=== PATIENT | female | born 1980 | race Caucasian/White ===

== ENCOUNTER 2016-08-12 11:03 | Day surgery (SDC) | payer OTHER ==
--- NOTE | 2016-08-11 20:50 | PREOPHP ---
DATE OF ADMISSION: 08/12/2016 The patient is to be admitted tomorrow, 08/12/2016, for laparoscopic bilateral tubal ligation. HISTORY OF PRESENT ILLNESS: This is a 36-year-old female, 3, para 3, who has requested ster ilization on the basis of multiparity. The alternatives, benefits, risks and possible complications of this procedure as well as 1% failure rate was discussed with the patient at great length at the office. She was allowed to ask questions and all the questions were answered to her satisfaction, a nd she signed the appropriate surgical informed consent. PAST MEDICAL HISTORY: The patient had 3 normal pregnancies normal vaginal deliveries. She denies a ny medical problems including cardiovascular disease, hypertension, renal disease, liver disease, th yroid disease, or neurological problems. ALLERGIES: SHE HAS NO KNOWN ALLERGIES. FAMILY HISTORY: Noncontributory. REVIEW OF SYSTEMS: A 12-point review of systems is noncontributory. PHYSICAL EXAMINATION: GENERAL: Well-developed, obese, in no distress. Height 5 feet 4 inches and weight 186 pounds. VITAL SIGNS: Showed temperature to be 97.2, blood pressure 134/69, respirations 16 per minute, the pulse is 60 per minute, regular. HEENT: Within normal limits. Pupils are PERRLA. NECK: Supple. The thyroid is nonpalpable. LYMPHATIC: There is no lymphadenopathy. BREASTS: No masses or lumps. LUNGS: Clear to percussion and auscultation. HEART: Normal sinus rhythm without a murmur. ABDOMEN: Soft, obese. There are no organomegalies. PELVIC: Normal external genitalia. Vagina is normal. Cervix is normal. Bimanual exam: Uterus sm all, in the midline. There are no adnexal masses. LOWER EXTREMITIES: Within normal limits. NEUROLOGIC: Also normal. IMPRESSION: 1. Multiparity. 2. Obesity. PLAN: The patient is to be admitted tomorrow for laparoscopic tubal ligation under general anesthes ia. Dictated By: SUHA ANDERSON/KEN Conf#: [id number] DID#: [id number]
[2016-08-12] VITALS (10 sets, daily range): BP systolic 105–167; BP diastolic 60–73; PULSE 63–77; RESP 13–30; Ht 154.9 cm; Wt 85.1 kg
[~2016-08-12] VITALS: Ht 154.9 cm; Wt 85.1 kg
[~2016-08-12 11:03] MED LIST: GLYCOPYRROLATE 1 MG INJ ONE; NEOSTIGMINE 3 MG/3 ML SYRINGE ONE; ROCURONIUM 50 MG INJ ONE
[2016-08-12] MEDS ORDERED: SUCCINYLCHOLINE CHLORIDE 100 MG/5 ML SYG IV ONE (13:44)
[2016-08-12] MEDS ORDERED: PROPOFOL 20 ML ONE (13:44)
[2016-08-12] MEDS ORDERED: LIDOCAINE 2% (SDV) 5 ML INJ ONE (13:44)
[2016-08-12] MEDS ORDERED: FENTAnyl 50 MCG/ML VIAL ONE (13:45)
[2016-08-12] MEDS ORDERED: MIDAZOLAM 1 MG/ML 2 ML INJ ONE (13:45)
[2016-08-12] MEDS ORDERED: BUPIVACAINE 0.5%/EPI (SDV) 30 ML INJ ONE (13:54)
[2016-08-12] MEDS ORDERED: CEFAZOLIN 1 GM INJ ONE (14:34)
[2016-08-12] MEDS ORDERED: ONDANSETRON 4 MG INJ ONE (14:34)
[2016-08-12] MEDS ORDERED: LACTATED RINGER'S 1,000 ML IV SCH (14:49)
[2016-08-12] MEDS ORDERED: ONDANSETRON 4 MG INJ IV PRN ×2 (15:00→15:30)
[2016-08-12] MEDS ORDERED: ACETAMINOPHEN 325 MG TAB PO PRN (15:00)
[2016-08-12] MEDS ORDERED: morphine 2 MG INJ IV PRN (15:00)
[2016-08-12] MEDS ORDERED: IBUPROFEN 600 MG TAB PO PRN (15:00)
[2016-08-12] MEDS ORDERED: OXYCODONE/ACETAMINOPHEN (5/325) TAB PO PRN ×2 (15:00→15:30)
[2016-08-12] MEDS ORDERED: HYDROmorphONE (0.2 MG/ML) 10ML SYG IV ONE (15:13)
[2016-08-12] MEDS ORDERED: HYDROmorphONE (0.2 MG/ML) 10ML SYG IV PRN ×2 (15:30)
[2016-08-12] MEDS ORDERED: METOCLOPRAMIDE 10 MG INJ IV PRN (15:30)
[2016-08-12] MEDS: HYDROmorphONE (0.2 MG/ML) 10ML SYG IV PRN ×2 (15:56→16:02)
--- NOTE | 2016-08-12 17:13 | OPR ---
DATE OF OPERATION: 08/12/2016 PREOPERATIVE DIAGNOSES: 1. Multiparity. 2. Obesity. POSTOPERATIVE DIAGNOSIS: 1. Multiparity. 2. Obesity. PROCEDURE PERFORMED: Laparoscopic bilateral tubal ligation. SURGEON: Suha Mann MD. ANESTHESIA: General. ANESTHESIOLOGIST: COMPLICATIONS: None. SPECIMENS: None. ESTIMATED BLOOD LOSS: Negligible. PROCEDURE AND FINDINGS: With the patient under general anesthesia, she was laid on the table in the dorsal lithotomy position. Her abdomen, perineum and vagina was prepped with Betadine soap and Betadine solution. The bladder was catheterized and emptied. After 3 minutes, she was draped in the usual sterile fashion for this procedure. A small 5 mm incision was done at the level of the umbilicus. A Veress needle was inserted while we were tenting up the anterior abdominal wall. Once the tip of the needle was ascertained to be intraperitoneal by the hanging drop saline technique, it was then connected to the CO2 insufflator. Good pneumoperitoneum was obtained. The needle was then removed and a 5 mm trocar was passed in. Through this port, the laparoscope with the Endocamera was inserted. The patient was placed in Trendelenburg position. All pelvic organs were found to be normal. A second port was placed under direct vision in the hypogastric area in the midline. Through this 5 mm port, a Kleppinger clamp with the gyrus device was inserted. The right tube was picked up in its mid portion and burned [id number] with 35 salazar of current. The same was done on the contralateral side. Pictures were taken for documentation. All the instruments were then removed from the patient's abdomen as well as much CO2 as possible. The incisions were infiltrated with 0.5% Marcaine with epinephrine, a total of 20 mL. They were closed with 3-0 Monocryl. Band-Aids were applied. Needle, sponge and instrument counts at the end of the procedure were correct twice. The patient withstood the procedure well and was taken to recovery room with all vital signs stable. Dictated By: SUHA ANDERSON/KEN Conf#: [id number] DID#: [id number]
== END 2016-08-12 17:20 | disposition home or self-care (01) ==
LOC: SDS 11:03
PROVIDERS: ATTEND Specialist
DX: Z30.2 Encounter for sterilization (principal); E66.9 Obesity, unspecified; Z68.35 Body mass index [BMI] 35.0-35.9, adult
CPT/HCPCS: 58670; 84703; J0330; J0690; J1170; J2250; J2405; J2710; J3010